=== PATIENT | male | born 1930 | race Caucasian/White ===

== ENCOUNTER → 2020-08-03 | Outpatient (CLI) | payer MEDICARE, BC ==
[~2020-08-03] MED LIST: ASPI-515 PO; BENA1TAB52 PO; FLUT12HF3 IH; FLUT9.9S16 NAS; METO25TA91 PO; VISIPAQUE 320 MG/ML, 150ML BOTTLE ONE
== END | disposition home or self-care (01) ==
LOC: CVU 09:56
PROVIDERS: ATTEND Internal Medicine Cardiovascular Disease
DX: Z01.810 Encounter for preprocedural cardiovascular examination (principal); I65.23 Occlusion and stenosis of bilateral carotid arteries; R06.02 Shortness of breath; I35.8 Other nonrheumatic aortic valve disorders; I70.0 Atherosclerosis of aorta; I25.10 Atherosclerotic heart disease of native coronary artery without angina pectoris; K57.30 Diverticulosis of large intestine without perforation or abscess without bleeding; Q25.46 Tortuous aortic arch
CPT/HCPCS: 71275; 74174; 93880; Q9967